=== PATIENT | male | born 1965 | race Caucasian/White ===

== ENCOUNTER 2017-01-24 02:14 | Emergency (ER) | payer OTHER ==
[~2017-01-24] VITALS: Ht 177.8 cm; Wt 85.0 kg
[2017-01-24 02:16] VITALS: Ht 177.8 cm; Wt 85.0 kg
[2017-01-24] MEDS ORDERED: LIDOCAINE 2%/EPI MPF (SDV) 20 ML VIAL INJ STA (02:41)
[2017-01-24] MEDS ORDERED: DIPHTH/TET/ACEL PERTUSS (ADULT) 0.5 ML VIAL IM ONE (03:00)
--- NOTE | 2017-01-24 03:10 | RADRPT ---
PROCEDURE: CT BRAIN WITHOUT CONTRAST CLINICAL INDICATION: 51-year-old male with trauma. TECHNIQUE: The study was performed utilizing [employer] VCT 64-slice CT scanner. Direct axial sections were obtained from the foramen magnum to the vertex without the use of intravenous contrast material. Sagittal and coronal reformations were obtained. One or more of the following dose reduc tion techniques were utilized: automated exposure control, adjustment of the mA and/or kV according to patient's size or use of iterative reconstruction technique. The images were viewed on a PACS w orkstation. CTD/vol = 45.0 mGy; Total Exam DLP = 810.3 mGy-cm. COMPARISON: None. FINDINGS: There is mild prominence of the sulci and cisternal spaces consistent with diffuse volume loss. Oth erwise, the ventricles have a normal shape and position. There is no evidence for mass effect or mid line shift. There are no intracranial areas of abnormal attenuation. There is no evidence for acut e intra or extra-axial blood. The bony calvarium is intact. There is right parietal scalp soft tissu e swelling/subgaleal hematoma. Minimal mucosal thickening is seen within the ethmoid air cells bilat erally. No air-fluid levels are noted. The mastoid air cells are without significant soft tissue. IMPRESSION: 1. Mild diffuse volume loss. 2. Right parietal scalp soft tissue swelling/subgaleal hematoma. 3. Minimal mucosal thickening ethmoid air cells. .Chandrakant Bee MD, Date Time Electronically viewed and signed by .Chandrakant Bee MD, on 01/24/2017 03:10 .M/
--- NOTE | 2017-01-24 03:31 | RADRPT ---
PROCEDURE: CT CERVICAL SPINE WITHOUT CONTRAST CLINICAL INDICATION: 51-year-old male with neck pain following trauma. TECHNIQUE: The study was performed utilizing a [employer] VCT 64-slice CT scanner. Direct axia l sections were obtained through the cervical spine. Coronal and sagittal re-formations were obtain ed. The images were viewed on a PACS workstation. CTD/vol = 22.4 mGy; Total Exam DLP = 653.4 mGy-cm . COMPARISON: None. FINDINGS: There is straightening of the normal cervical lordosis. Otherwise, the cervical vertebral bodies fletcher ve normal heights and anatomic alignment. There is no evidence for acute cervical spine fracture. D egenerative changes are seen within the atlantoaxial junction. At C2-3 there are minimal uncovertebral degenerative changes without significant central or foramina l stenosis. At C3-4 there are mild bilateral uncovertebral degenerative changes resulting in mild right and mini mal left foraminal stenosis. At C4-5 there are mild bilateral uncovertebral degenerative changes resulting in minimal right calvin inal stenosis. At C5-6 there is mild disk space narrowing. There is mild posterior disk-osteophyte complex project ing 2 mm beyond the posterior margin. There are bilateral uncovertebral degenerative changes result ing in ojuo-ty-pkwibdgi and aewcdpvl-ya-mdckcu left foraminal stenosis. At C6-7 there are mild bilateral uncovertebral degenerative changes resulting in mild left foraminal stenosis. At C7-T1 the disk space has a normal appearance. There is no significant central or foraminal steno sis. IMPRESSION: 1. Straightening of the normal cervical lordosis. 2. No CT evidence for acute cervical spine fracture. 3. Cervical spondylosis most prominently at C5-6. .Chandrakant Bee MD, Date Time Electronically viewed and signed by .Chandrakant Bee MD, MD on 01/24/2017 03:31 .M/
--- NOTE | 2017-01-24 04:09 | ERA ---
ER Documentation Chief Complaint Date/Time DATE: 01/24/17 Chief Complaint Fall HPI The patient is a 51-year-old male, presenting to the ER because he has been drinking. His friend fell on him then he fell on the ground hitting the head on the floor about 30 minutes prior to arrival. He has been drinking heavily, it is questionable whether he was incoherent for a minute after he fell. He is now awake, alert, able to answer question appropriately. He denies any illicit drug Past medical/surgical history: None ROS All systems reviewed and are negative except as per history of present illness. PMhx/Soc Hx Alcohol Use: Yes (12 beers and 2 shots tonight) Hx Substance Use: No Hx Tobacco Use: Yes Smoking Status: Former smoker Physical Exam Vitals Vital Signs Date Time Temp Pulse Resp B/P Pulse Ox O2 Delivery O2 Flow Rate FiO2 01/24/17 06:05 66 12 160/95 100 Room Air 01/24/17 04:15 84 14 120/78 96 Room Air 01/24/17 02:16 98.7 92 16 131/81 95 Physical Exam Const: No acute distress. Head: Occipital complex macerated 5 cm laceration with active bleeding Eyes: Normal Conjunctiva. ENT: Normal External Ears, Nose and Mouth. Neck: Full range of motion. No meningismus. Resp: Clear to auscultation bilaterally. Cardio: Regular rate and rhythm, no murmurs. Abd: Soft, non distended, normal bowel sounds, non tender. Skin: No petechiae or rashes. Back: No midline or flank tenderness. Ext: No cyanosis, or edema. Neur: Awake and alert. No focal deficit Psych: Normal Mood and Affect. Results 24 hrs Current Medications Medications (Trade) Dose Ordered Sig/Ovi Route PRN Reason Start Time Stop Time Status Last Admin Dose Admin Diphtheria/ Tetanus/Acell Pertussis (Adacel) 0.5 ml ONCE ONCE IM 01/24/17 03:00 01/24/17 03:01 DC 01/24/17 02:49 Lidocaine/ Epinephrine (Xylocaine 2%/ Epi Mpf(Sdv)) 20 ml ONCE STAT INJ 01/24/17 02:41 01/24/17 02:43 DC Procedures/[place] [id number] Radiology Main Line: [phone] DIAGNOSTIC IMAGING REPORT Patient: CARLOS KRUSE : 1965 Age: 51 Sex: M [id number] DOS: 01/24/17 0242 Ordering MD: MARYLU SUERO MD Location: E/R Room/Bed: PROCEDURE: CT BRAIN WITHOUT CONTRAST CLINICAL INDICATION: 51-year-old male with trauma. TECHNIQUE: The study was performed utilizing [employer] 64-slice CT scanner. Direct axial sections were obtained from the foramen magnum to the vertex without the use of intravenous contrast material. Sagittal and coronal reformations were obtained. One or more of the following dose reduction techniques were utilized: automated exposure control, adjustment of the mA and/ or kV according to patient's size or use of iterative reconstruction technique. The images were viewed on a PACS workstation. CTD/vol = 45.0 mGy; Total Exam DLP = 810.3 mGy-cm. COMPARISON: None. FINDINGS: There is mild prominence of the sulci and cisternal spaces consistent with diffuse volume loss. Otherwise, the ventricles have a normal shape and position. There is no evidence for mass effect or midline shift. There are no intracranial areas of abnormal attenuation. There is no evidence for acute intra or extra-axial blood. The bony calvarium is intact. There is right parietal scalp soft tissue swelling/subgaleal hematoma. Minimal mucosal thickening is seen within the ethmoid air cells bilaterally. No air-fluid levels are noted. The mastoid air cells are without significant soft tissue. IMPRESSION: 1. Mild diffuse volume loss. 2. Right parietal scalp soft tissue swelling/subgaleal hematoma. 3. Minimal mucosal thickening ethmoid air cells. .Chandrakant Bee MD, Date Time Electronically viewed and signed by .Chandrakant Bee MD, on 01/24/2017 03:10 .M/ CC: MARYLU SUERO MD [place] [id number] Radiology Main Line: [phone] DIAGNOSTIC IMAGING REPORT Patient: CARLOS KRUSE : 1965 Age: 51 Sex: M [id number] DOS: 01/24/17 0245 Ordering MD: MARYLU SUERO MD Location: E/R Room/Bed: PROCEDURE: CT CERVICAL SPINE WITHOUT CONTRAST CLINICAL INDICATION: 51-year-old male with neck pain following trauma. TECHNIQUE: The study was performed utilizing a [employer] VCT 64-slice CT scanner. Direct axial sections were obtained through the cervical spine. Coronal and sagittal re-formations were obtained. The images were viewed on a PACS workstation. CTD/vol = 22.4 mGy; Total Exam DLP = 653.4 mGy-cm. COMPARISON: None. FINDINGS: There is straightening of the normal cervical lordosis. Otherwise, the cervical vertebral bodies have normal heights and anatomic alignment. There is no evidence for acute cervical spine fracture. Degenerative changes are seen within the atlantoaxial junction. At C2-3 there are minimal uncovertebral degenerative changes without significant central or foraminal stenosis. At C3-4 there are mild bilateral uncovertebral degenerative changes resulting in mild right and minimal left foraminal stenosis. At C4-5 there are mild bilateral uncovertebral degenerative changes resulting in minimal right foraminal stenosis. At C5-6 there is mild disk space narrowing. There is mild posterior disk- osteophyte complex projecting 2 mm beyond the posterior margin. There are bilateral uncovertebral degenerative changes resulting in [id number]-ew-raptuikj and ihosoubt-fm-pipeuc left foraminal stenosis. At C6-7 there are mild bilateral uncovertebral degenerative changes resulting in mild left foraminal stenosis. At C7-T1 the disk space has a normal appearance. There is no significant central or foraminal stenosis. IMPRESSION: 1. Straightening of the normal cervical lordosis. 2. No CT evidence for acute cervical spine fracture. 3. Cervical spondylosis most prominently at C5-6. .Chandrakant Bee MD, MD Date Time Electronically viewed and signed by .Chandrakant Bee MD, on 01/24/2017 03:31 .M/ CC: MARYLU SUERO MD MEDICAL MAKING DECISION: The patient is a 51-year-old male, presenting with acute scalp complex laceration, acute alcohol intoxication. He was treated with Tdap The differential diagnoses considered include but are not limited to subarachnoid hemorrhage, occult trauma, CVA, meningitis, encephalitis, hypertension, tension, migraine, cluster, narcotic withdrawal, cervical spine disease. Laceration Repair by me: Anesthesia: 1% lidocaine locally Location: Occipital scalp Tendon/Joint/Nerves: No injury Foreign body: None detected after copious irrigation and exploration Technique: Simple Interrupted Sutures Complexity: No subcutaneous sutures/mucosal repair/ edge excision Post Closure Length: 5 cm Patient's bleeding was easily controlled in the department and there is no indication of anemia. No evidence of compartment syndrome, neurologic injury, vascular injury, open joint, tendon laceration, or foreign body. Patient is appropriate for outpatient follow up. 48 hour wound check. Scar minimization instructions given. Departure Diagnosis: Primary Impression: Acute head injury Additional Impression: Scalp laceration Condition: Good Comments He was advised to return in 2 days for wound check, 10 day for suture removal, sooner if any concern The patient's blood pressure was elevated (>120/80) but appears stable without evidence of hypertension emergency or urgency. The patient was counseled about the risks of hypertension and urged to pursue outpatient monitoring and therapy within a week with their primary care physician. MARYLU SUERO MD January 24, 2017 04:09
[2017-01-24 06:05] VITALS: BP 160/95; PULSE 66; RESP 12
== END 2017-01-24 06:15 | disposition home or self-care (01) ==
LOC: E/R 02:14
DX: S01.01XA Laceration without foreign body of scalp, initial encounter (principal); R40.2142 Coma scale, eyes open, spontaneous, at arrival to emergency department; R40.2252 Coma scale, best verbal response, oriented, at arrival to emergency department; R40.2362 Coma scale, best motor response, obeys commands, at arrival to emergency department; W18.09XA Striking against other object with subsequent fall, initial encounter; Y92.9 Unspecified place or not applicable; Z87.891 Personal history of nicotine dependence; Z23 Encounter for immunization
CPT/HCPCS: 70450; 72125; 90471; 90715